=== PATIENT | female | born 1995 | race Caucasian/White ===

== ENCOUNTER → 2023-11-24 13:58 | Outpatient (CLI) | payer BC, SELFPAY ==
--- NOTE | 2023-11-24 14:08 | DI.US.S_ITS ---
PROCEDURE: US OB >= 14 WEEKS FETUS INDICATIONS: ANATOMY SCAN OUTSIDE/PRIOR DATING DATA: Last menstrual period (LMP): 07/03/2023. LMP-based estimated date of delivery (MARQUITA): 04/08/2024 First dating scan (date and location): Not available Estimated date of delivery (MARQUITA) from first dating scan: Not available The calculations are made using the working MARQUITA of 04/08/2024. TECHNIQUE: Real-time scanning was performed of the fetus, with image documentation and biometric measurements. Endovaginal scanning: Not indicated COMPARISON: None. FINDINGS: General: A single living intrauterine gestation is present. Presentation: Transverse with head towards maternal right side. Placenta: Placental position is posterior, without previa. Amniotic fluid index: 11.5 cm, normal range is 5-24 cm. Single deepest vertical pocket is 3.1 cm. heart rate: 145 beats per minute. Maternal cervical canal: 4.4 cm long. Normal lower limit is 2.5 cm. biometrics: Biparietal diameter: 4.6 cm, 20 weeks, 0 day Head circumference: 18.1 cm, 20 weeks, 4 days Abdominal circumference: 16.1 cm, 21 weeks, 1 day Femur length: 3.4 cm, 20 weeks, 5 days Clinically estimated gestational age: 20 weeks, 4 days Composite gestational age from present scan: 20 weeks, 4 days Estimated weight and percentile: 384 g, 63% Anatomic survey: Neuro: Ventricles are non-dilated at less than 10 mm. Cisterna magna is normal at 3-11 mm. Cerebellum is normal in size and morphology. Nuchal skin fold: Normal at less than 6 mm between 14-21 weeks gestational age. Face: Nose and lips, facial profile are normal. Spine: No evidence for spina bifida. Heart: 4-chambered heart is present, with normal ventricular outflow tracts. Diaphragm: Diaphragm is intact. Stomach: Left-sided stomach is present. Kidneys: No hydronephrosis. Normal is less than 5 mm in 2nd trimester, less than 7 mm in 3rd trimester. Cord: 3-vessel cord has orthotopic insertion. Bladder: Normal in size. Extremities: All 4 extremities identified. IMPRESSION: 1. Single live intrauterine gestation with fetus in transverse presentation. heart rate is 145 beats per minute. Normal amount of amniotic fluid. Normal growth. Estimated weight is at 63%. 2. Normal anatomic survey. We strive to produce accurate, complete, and clear reports of imaging services. To assist us in improving patient care, this report was composed using standard report templates and voice recognition software. Therefore, it may contain abnormal punctuation, insertions and/or omissions. Occasional wrong-word or sound-alike substitutions may occur. Though we review the report and make efforts to correct it, we do recommend that the report be read carefully in proper context to recognize any text inaccuracies. Dictated by: Ravin Espana M.D. on 11/24/2023 at 17:38 Approved by: Ravin Espana M.D. on 11/24/2023 at 17:39
== END ==
LOC: US 14:06
PROVIDERS: PCP Registered Nurse; Referring Provider Advanced Practice Midwife; Visit Provider Advanced Practice Midwife
DX: Z36.89 Encounter for other specified antenatal screening (principal); Z3A.20 20 weeks gestation of pregnancy
CPT/HCPCS: 76811

== ENCOUNTER 2024-04-05 11:16 | Outpatient (CLI) | payer OTHER, SELFPAY ==
--- NOTE | 2024-04-05 11:36 | PM.OBTRLD ---
Visit Information Visit Information Date of evaluation: 04/05/24 Primary OB Provider: Kate Kim On-call OB Provider: Kate Kim Reason for Evaluation: Yes other Comments/Additional reasons for admission: 28YO @ [id number] by LMP concordant with 9wks US presents for evaluation of contractions. Has been teto all night about Q10 minutes and feeling less movement, asking for reassurance that everything is okay. No vaginal bleeding or leaking of fluid. Uncomplicated care with CNMs. Vital Signs Vital Signs: BP 115/60, HR 69, T 97.1F Temporal PFSH Medical History (Updated 04/05/24 @ 14:46 by Kate Kim CNM) Obesity (BMI 35.0-39.9 without comorbidity) ADHD Anxiety Surgical History (Updated 04/05/24 @ 14:38 by Kate Kim CNM) H/O oral surgery Family History (Updated 04/05/24 @ 14:39 by Kate Kim CNM) Mother Depression Social History (Updated 04/05/24 @ 14:39 by Kate Kim CNM) marital status: number of children: 4 household members: spouse and children lives independently: Yes caregiver/support person: No housing: house Review of Systems Review of Systems ROS: Yes All systems reviewed with the patient and are negative except as otherwise documented Exam Vital Signs (past 8 hours): BP 132/62, HR 79bpm, T 36.1C Temporal Resp Effort & Inspection: normal respiratory effort Auscultation: clear to auscultation bilaterally Cardio Rate: regular rate Presentation: vertex Psych Appearance: grossly normal and well kempt Affect: anxious affect Evaluation Evaluation Baseline heart rate: 120 Variability: Moderate (11-25) monitor accelerations: Present Monitor Decelerations: Absent Contraction Frequency (minutes): 7 Uterine Contraction Intensity: Moderate Category of Tracing: Reactive Cervical dilation (cm): 3 Cervical effacement (%): 80 station: -1 Diagnosis, Plan/Disposition Final Diagnosis (1) False labor after 37 completed weeks of gestation: Status: Acute Problem details: Early labor Plan/Disposition Plan: Encouraged her to walk and return. Encouraged food and an actual walk and if contractions persist or strengthen, then return for repat CE. Patient agrees and will call if anythign changes. OB Disposition: home
== END 2024-04-05 12:21 | disposition home or self-care (01) ==
LOC: LABOR 11:28 → OB 04-08 06:48
PROVIDERS: PCP Registered Nurse; Referring Provider Nurse Practitioner Obstetrics & Gynecology; Visit Provider Nurse Practitioner Obstetrics & Gynecology
DX: O47.1 False labor at or after 37 completed weeks of gestation (principal); Z3A.39 39 weeks gestation of pregnancy
CPT/HCPCS: 59025; G0378; G0379

== ENCOUNTER 2024-04-05 14:12 | Inpatient (IN) | payer OTHER, SELFPAY ==
--- NOTE | 2024-04-05 14:27 | PM.OBHP.1 ---
OB HPI Date/Time Date of admission: 04/05/24 Date Patient Seen: 04/05/24 Time Patient Seen: 14:27 History of Present Condition Chief complaint: labor check : 2 Para: 1 Estimated Date of Delivery: 04/08/24 Estimated Gestational Age (weeks): 39.4 Narrative: Ciara Rebolledo is a 28YO @ 39wks 4days by LMP concordant with 9wks US presents for evaluation of labor. Contraction started last night and have steadily increased in frequency and intensity. Was seen in triage 3 hours ago with a reactive NST and CE of 3/80/-1. No vaginal bleeding or leaking of fluid. Uncomplicated care with CNMs. Planning an epidural. Accompanied by her supportive . 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, Uncertain Significance), GBS status: negative, HBsAG: negative, HIV: negative and RPR/VDLR: negative -: Chlamydia screen: not detected and Gonorrhea screen: not detected -: Rubella: immune and Varicella: immune HCT: 34.5 HCAB: negative Cell-free DNA: Negative 1 hr GTT: 100 Evaluation Evaluation Baseline heart rate: 125 Variability: Moderate (11-25) monitor accelerations: Present Monitor Decelerations: Absent Contraction Frequency (minutes): 5 Uterine Contraction Intensity: Strong/Firm Status: Category l Dilation (cm): 4 Effacement (%): 80 Dilation: 3-4 cm Effacement: >/=80% station: -1 Position of cervix: mid Consistency: soft Navarro score: 10 PFSH Medical History (Updated 04/05/24 @ 15:06 by Kate Kim CNM) Migraine Insulin resistance Obesity (BMI 35.0-39.9 without comorbidity) ADHD Anxiety Surgical History H/O oral surgery Family History Mother Depression Social History (Updated 04/05/24 @ 17:12 by Kate Kim CNM) marital status: number of children: 1 household members: spouse and children lives independently: Yes caregiver/support person: No housing: house Smoking Status: Never smoker Meds Home Medications and Allergies Home Medications Medication Instructions Recorded Confirmed Type metformin 500 mg tablet,extended 500 mg PO DAILY 04/05/24 04/05/24 History release 24 hr sertraline 25 mg tablet 25 mg PO DAILY 04/05/24 04/05/24 History Allergies Allergy/AdvReac Type Severity Reaction Status Date / Time No Known Drug Allergies Allergy Verified 04/05/24 15:54 Review of Systems Review of Systems ROS: Yes All systems reviewed with the patient and are negative except as otherwise documented OB Exam Vital signs Blood Pressure: 132/62 Pulse Rate: 79 Respiratory Rate: 20 Temperature: 36.1 F Resp Effort & Inspection: normal respiratory effort and able to speak in complete sentences Auscultation: clear to auscultation bilaterally Cardio Rate: regular rate Rhythm: regular rhythm Presentation: vertex Estimated Weight (lbs): 9 Objective Labs 04/05/24 15:28 Assessment and Plan Assessment and Plan Assessment and Plan narrative: A: Term primipara Approaching active labor GBS prophylaxis not indicated Cat I FHR P: Admit, routine labor orders. Encouraged upright movement. Labor support PRN. Epidural when requested. Reassess in 4 hours or sooner, PRN. Time-Based Coding :: [TOTAL MINUTES] spent with patient and on the chart (including review of chart, obtaining history, exam, reviewing outside data, placing orders, documenting exam and treatment plan, and counseling patient) on [DATE].
[2024-04-05 15:07] VITALS: BP 132/62; PULSE 79; RESP 20; TEMP 2.3; TEMP 36.1
[2024-04-05] MEDS: LACTATED RINGERS 1,000 ML 100 ML IV ×2 (15:15→16:49)
[2024-04-05 15:38] LABS: Add Manual Diff / Slide Review NO; Basophils Absolute Auto 0 /uL (0-100); Basophils Percent Auto 0.4 % (0-2); Eosinophils Absolute Auto 0 /uL (0-450); Eosinophils Percent Auto 0.3 % (2-4); Hematocrit 33.4 % (36-46); Hemoglobin 11.2 g/dL (12.0-16.0); Lymphocytes Absolute Auto 2000 /uL (1100-4500); Lymphocytes Percent Auto 15.6 % (25-40); Mean Corpuscular HGB Conc 33.5 % (30-36); Mean Corpuscular Hemoglobin 29.8 PG (26-34); Mean Corpuscular Volume 88.9 fL (80-100); Monocytes Absolute Auto 700 /uL (0-900); Monocytes Percent Auto 5.2 % (3-14); Neutrophils Absolute Auto 10000 /uL (1500-7000); Neutrophils Percent Auto 78.5 % (50-75); Platelet Count 279 X10^3/uL (150-400); Red Blood Cell Count 3.75 X10^6/uL (4.0-5.2); Red Cell Distribution Width 13.7 % (11.6-14.8); White Blood Cell Count 12.7 X10^3/uL (4.5-11.0)
[2024-04-05 15:53] VITALS: BP 132/62
--- NOTE | 2024-04-05 17:13 | PM.OBPNLAB ---
Date/Time Date Patient Seen: 04/05/24 Time Patient Seen: 17:00 Pain Control Pain control: epidural Comments: Ciara received her epidural and is comfortable. Her and mom are supportive at the bedside. Vitals BP: 104/52 HR: 81 bpm SpO2: 95% Temp: 36.1 C Pelvic Exam Dilation (cm): 5.5 Effacement (%): 80 station: -1 Amniotic membrane status: Intact Contractions Monitor mode: External Contraction frequency (min): 2 (2-3, based on observation in room) Contraction duration (min): 1 Contraction pattern: Regular Contraction intensity: Strong/Firm Status status: Category l Heart Rate Baseline: 120 Monitor Accelerations: Present Monitor Decelerations: Absent Monitor Variability: Moderate Assessment and Plan Assessment: active labor Plan: continuous present management Comments: Assessment: Active labor Membranes intact Adequate epidural anesthesia FHR Category I Plan: Encourage rest and frequent position changes Reassess in 4 hours or sooner PRN
--- NOTE | 2024-04-05 18:40 | PM.AN.REGBLK ---
Regional Block Pre-procedure Procedure: Continuous Lumbar Epidural for L&D (with CSE) Attending OB provider: Kate Kim PMH/ROS narrative: 28yo in labor requesting epidural. See pre-anesthesia evaluation for further details. ASA Class: III Labs: Hct 33.4 % (36-46) L 04/05/24 15:28 Plt Count 279 X10^3/uL (150-400) 04/05/24 15:28 Medications: Current Medications Generic Name Dose Route Start Last Admin Trade Name Freq PRN Reason Stop Dose Admin Calcium Carbonate 1,000 mg 04/05/24 14:24 Calcium Carbonate 500 Mg Tab PO Q4HR PRN Dyspepsia Carboprost Tromethamine 250 mcg 04/05/24 14:24 Carboprost 250 Mcg/Ml Ampul IM Q90M PRN Bleeding Diphenhydramine HCl 25 mg 04/05/24 16:34 Diphenhydramine 50 Mg/Ml Vial IV Q10M PRN Pruritis Diphenhydramine HCl 25 mg 04/05/24 18:40 Diphenhydramine 50 Mg/Ml Vial IV 04/06/24 18:40 Q3HR PRN PRURITUS Ephedrine Sulfate 10 mg 04/05/24 16:34 Ephedrine 50 Mg/Ml Vial IV Q5M PRN Blood pressure decrease more than 20% of baseline. Fentanyl 100 mcg 04/05/24 14:24 Fentanyl 100 Mcg/2 Ml Inj IV Q1H PRN Pain, Severe (7-10) Oxytocin/Lactated Ringer's 30 unit in 500 mls @ 200 mls/hr 04/05/24 14:24 Oxytocin Premix IV CONT PRN Bleeding Protocol Tranexamic Acid 1,000 mg/ 100 mls @ 600 mls/hr 04/05/24 14:24 Sodium Chloride IV NOW PRN Bleeding Lactated Ringer's 1,000 mls @ 100 mls/hr 04/05/24 14:30 04/05/24 16:49 Lactated Ringers IV 100 mls/hr CONT JIMBO Administration FENT 2MCG/ML BUPIV 0.125% EPI 200 mcg in 100 mls @ 6 mls/hr 04/05/24 16:45 Fentanyl/Bupiv/Ns 2mcg/Ml - 0.125% EPIDURAL CONT JIMBO Lidocaine HCl 20 ml 04/05/24 14:24 Lidocaine 1% 20 Ml INJ INTRA-OP PRN Post Delivery Methylergonovine Maleate 0.2 mg 04/05/24 14:24 Methylergonovine 0.2 Mg Tablet PO Q6HR PRN Heavy Bleeding Methylergonovine Maleate 0.2 mg 04/05/24 14:24 Methylergonovine 0.2 Mg/Ml Vial IM NOW PRN Bleeding Metoclopramide HCl 10 mg 04/05/24 18:40 Metoclopramide 10 Mg/2 Ml Inj IV 04/06/24 18:40 Q4H PRN Nausea Misoprostol 800 mcg 04/05/24 14:24 Misoprostol 200 Mcg Tablet VT NOW PRN Bleeding Misoprostol 400 mcg 04/05/24 14:24 Misoprostol 200 Mcg Tablet SL NOW PRN Bleeding Nalbuphine HCl 2.5 mg 04/05/24 16:34 Nalbuphine 20 Mg/Ml Ampul IV Q10M PRN Pruritis Naloxone HCl 0.2 mg 04/05/24 14:24 Naloxone 0.4 Mg/Ml Vial IV Q2MIN PRN Opiate Reversal Ondansetron HCl 4 mg 04/05/24 14:24 Ondansetron 4 Mg/2 Ml Inj IV Q4HR PRN Nausea And Vomiting Ondansetron HCl 4 mg 04/05/24 18:40 Ondansetron 4 Mg/2 Ml Inj IV 04/06/24 18:40 Q6HR PRN Nausea Oxytocin 10 unit 04/05/24 14:24 Oxytocin 10 Unit/Ml Vial IM NOW PRN Bleeding Allergies: Allergies Allergy/AdvReac Type Severity Reaction Status Date / Time No Known Drug Allergies Allergy Verified 04/05/24 15:54 Procedure Insertion date: 04/05/24 Insertion time: 16:20 Prep/Local: 1% lidocaine (Chloraprep) Interspace: L3-4 Patient position: sitting Needle: 18 gauge Hustead (27g 5 Pencan for CSE) Loss of resistance with: saline MARLEY at (cm): 8 Catheter placed at SKIN (cm): 15 Catheter in SPACE (cm): 7 Insertion: Yes CSF, No Blood, No Paresthesia with insertion, No Paresthesia with injection and No Test dose reaction Initial Medications TEST DOSE time: 16:21 TEST DOSE: 1.5% lidocaine with epinephrine 1:200k (mL): 3 BOLUS DOSE time: 16:23 BOLUS DOSE (mL): 2 BOLUS DOSE med: other (Same as test dose) Infusion INFUSION: 0.125% bupivacaine and with fentanyl 2 mcg/mL Initial rate (mL/hr): 8 Subsequent interventions: Two attempts to place, first at L4-5. Second attempt at L3-4 completed easily. CSE done at 16:19 with 0.5 ml of 0.75% Marcaine in dextrose and took effect quickly. Infusion started at 16:28. KR 18:52 - Pt reports feeling B abdominal tightness with contractions; rates pain as 4/10. Has pushed PCEA button x2. Able to move BLE well but both heavy. Increased epidural infusion rate to 12 ml/hr. KR Post-procedure Anesthesia date START: 04/05/24 Anesthesia time START: 16:09 Anesthesia date END: 04/05/24 Anesthesia time END: 21:00 Post-procedure Anesthesia Assessment: Yes CV function: HR/BP stable, Yes Resp function: RR/sat/airway adequate, Yes Post-op hydration adequate, Yes Pain control adequate, Yes Nausea & vomiting absent, Yes Temperature > 36 C, Yes Mental status appropriate and No Anesthesia complications
[2024-04-05] MEDS: FENT 2MCG/ML BUPIV 0.125% EPI 200 MCG/100 ML PLAST..BAG 6 MCG EPIDURAL (20:48)
[2024-04-05] MEDS: OXYTOCIN PREMIX 30 UNIT/500 ML PLAST..BAG 200 UNIT IV (21:05)
--- NOTE | 2024-04-05 21:40 | PM.OBPRVD ---
Labor & Delivery Delivery date: 04/05/24 Intrapartal Events: None Cervical ripening method: none Induction method: none Delivery monitor: external FHT and external uterine Route of delivery: L&D Laceration Description: Periurethral - 1st Degree Delivery repair: vicryl Quantitative Blood Loss: 300 Anesthesia Type: Epidural Narrative: Ciara reported increased rectal pressure and and shakiness at approximately 1945. Cervix was found to have a small anterior lip. She desired to bear down and cervical lip was reduced manually while pushing over 15-20 minutes. She continued to push effectively for a second stage of 54 minutes. SROM while pushing, clear fluid noted. FHR was category I for most of second stage and category II for final 10 minutes of pushing. Normal spontaneous vaginal of a vigorous female on 04/05/2024 at 2100 in LYNSEY position. There was no nuchal cord and the shoulders delivered easily with maternal effort. The was placed on maternal abdomen, dried, and placed [id number]. Apgars 8 at 1 min and 9 at 5 min. Delayed cord clamping until cord stopped pulsing at approximately 5 minutes, at which time 3 vessel cord was doubly clamped by student nurse-radiology receptionist and clamped by ARABELLA Anthony. Cord blood collected. Fundal massage with uterine support and gentle cord traction applied for AMTSL. Placenta delivered spontaneously and intact. IV pitocin initiated for modified active management. QBL of 300 ml. Perineum and vagina inspected and a first degree amanda-clitoral laceration was identified and repaired with a single figure of 8 with 4-0 Chromic. Tissues well approximated and hemostasis achieved. Baby and mother are skin to skin in stable condition. [place] Baby 1: Infant gender: Female Presentation: vertex Position: Left Occiput Anterior Placenta delivery description: Spontaneous and Normal Configuration Cord Vessel Description: 3 Vessels score (1 min): 8 score (5 min): 9 weight: 3.72 kg Plan for aftercare: Routine care
[2024-04-05] MEDS: KETOROLAC 30 MG/ML VIAL IV (22:12)
[2024-04-06] MEDS: DERMOPLAST SPRAY 20% 60 ML 1 SPRAY TOP (01:05)
[2024-04-06] MEDS: ACETAMINOPHEN 325 MG TABLET 650 MG PO ×3 (01:05→14:16)
[2024-04-06] MEDS: IBUPROFEN 600 MG TABLET PO ×3 (04:05→16:26)
[2024-04-06] MEDS: LANOLIN OINT 7 GM 1 APPLIC TOP (04:05)
[2024-04-06] MEDS: WITCH HAZEL/GLYCERIN PADS 1 EACH TOP (04:06)
[2024-04-06] MEDS: SERTRALINE 50 MG TABLET 25 MG PO (08:07)
--- NOTE | 2024-04-06 14:59 | P.DS_ITS ---
Discharge Providers Provider Date of admission: 04/05/24 14:12 Discharge Date: 04/06/24 Primary care physician: TRISTIN Goodman Consults: 04/06/24 21:29 Consult to Attending Anesthesiologist Routine Comment: Discharge provider: Kate Kim CNM Summary Hospital Course Date Patient Seen: 04/06/24 Time Patient Seen: 14:59 Diagnoses: O70.0 Hospital Course: Term uncomplicated NSVB with first degree amanda-clitoral laceration with routine course. PPD 1: voiding, ambulating, independently. Minimal cramping relieved by PO medication. Bleeding light, no clots. Tolerating a general diet. , Raj is present and supportive and they are eager for discharge to home this afternoon. Peripartum Data Delivery Method: Natural Vaginal Laceration Description: Superficial (periclitoral) Episiotomy description: None Procedures: O70.0 complications: none [place] 1: Gender: Female Disposition of : home Discharge Diagnosis (1) First degree perineal laceration during delivery: Status: Acute Status at Discharge Cognitive/behavioral status at discharge: oriented and calm Functional status at discharge: independent ambulation Overall status at discharge: patient is back to baseline Time Spent with Patient Time attestation: Total time spent providing and/or coordinating discharge services: 60 min. Time spent: Greater than 30 minutes Specific discharge activities: Routine and education with emphasis on mood and anxiety Objective Labs 04/05/24 15:28 Labs: Laboratory Results - last 24 hr 04/05/24 15:28 WBC 12.7 H RBC 3.75 L Hgb 11.2 L Hct 33.4 L MCV 88.9 MCH 29.8 MCHC 33.5 RDW 13.7 Plt Count 279 Neut % (Auto) 78.5 H Lymph % (Auto) 15.6 L [place] % (Auto) 5.2 Eos % (Auto) 0.3 L Baso % (Auto) 0.4 Neut # (Auto) 95897 H Lymph # (Auto) 2000 [place] # (Auto) 700 Eos # (Auto) 0 Baso # (Auto) 0 Blood Type O Positive Antibody Screen Negative Exam Vital Signs (past 8 hours): BP 116/59, 77bpm, T 97.6F Temporal Resp Effort & Inspection: normal respiratory effort and able to speak in complete sentences Auscultation: clear to auscultation bilaterally Uterus Location (Fundal Height): 1 (-1) Discharge Plan Discharge Plan Patient Disposition: Home Discharge orders & Medications Prescriptions: New ibuprofen 600 mg Tablet 600 mg PO Q6HR PRN (Reason: Pain, Mild (1-3)) 14 Days Qty: 60 0RF Continued metformin 500 mg tablet extended release 24 hr 500 mg PO DAILY sertraline 25 mg tablet 25 mg PO DAILY Follow up/Referrals: Kate Kim CNM [[facility]] - (2wk follow-up phone call 04/19/24 @ 0945 6wk follow-up office visit 05/17/24 @3125) Diet/Activity/Treatments Diet: Regular Diet comment: Hydrate and high-fiber diet Activity: Rest and minimal physical activity x 2 week Skin/Wound/Dressing Care Report to your healthcare provider any signs of infection, such as:: chills, fever, increased pain, unusual drainage and unusual redness Visit Report/Discharge Packet Instructions: Depression Stand Alone Forms: Discharge: Care, Patient Portal/API, Stroke Signs & Symptoms Discharge Data Primary Care Provider: Brenda Beasley Attending Provider: Kate Kim Admit Date/Time: 04/05/24 14:12
== END 2024-04-06 16:28 | disposition home or self-care (01) | DRG 807 ==
PROVIDERS: Admitting Provider Nurse Practitioner Obstetrics & Gynecology; PCP Registered Nurse; Referring Provider Nurse Practitioner Obstetrics & Gynecology; Visit Provider Nurse Practitioner Obstetrics & Gynecology
DX: O70.0 First degree perineal laceration during delivery (principal); Z37.0 Single live birth; O76 Abnormality in fetal heart rate and rhythm complicating labor and delivery; Z3A.39 39 weeks gestation of pregnancy
CPT/HCPCS: 36415; 59025; 59050; 85025; 86850; 86900; 86901; G0378; G0379; J1885; J2590